=== PATIENT | female | born 1960 | race Caucasian/White ===

== ENCOUNTER 2018-04-18 14:11 | Outpatient (CLI) | payer OTHER | END 2018-04-18 14:13 | disposition home or self-care (01) | LOC: SONOGRAMA 14:11 → MAMO-SONO 14:15 | DX: M25.511 Pain in right shoulder (principal) ==

== ENCOUNTER 2018-05-09 10:46 | Outpatient (CLI) | payer OTHER | END 2018-05-09 10:48 | disposition home or self-care (01) | LOC: MAMO-SONO 10:46 | DX: N63.10 Unspecified lump in the right breast, unspecified quadrant (principal); N63.20 Unspecified lump in the left breast, unspecified quadrant; Z12.31 Encounter for screening mammogram for malignant neoplasm of breast; N62 Hypertrophy of breast ==

== ENCOUNTER 2021-07-17 09:33 | Outpatient (CLI) | payer OTHER | END 2021-07-17 09:37 | disposition home or self-care (01) | LOC: NUCLEAR 09:33 | PROVIDERS: ATTEND Obstetrics & Gynecology | DX: M81.0 Age-related osteoporosis without current pathological fracture (principal) ==

== ENCOUNTER 2021-07-17 09:34 | Outpatient (CLI) | payer OTHER | END 2021-07-17 11:06 | disposition home or self-care (01) | LOC: MAMO-SONO 09:34 | PROVIDERS: ATTEND Obstetrics & Gynecology | DX: Z12.31 Encounter for screening mammogram for malignant neoplasm of breast (principal); N64.4 Mastodynia; M81.0 Age-related osteoporosis without current pathological fracture ==

== ENCOUNTER 2024-01-19 13:04 | Outpatient (CLI) | payer OTHER | END 2024-01-19 13:07 | disposition home or self-care (01) | LOC: NUCLEAR 13:04 | PROVIDERS: ATTEND Obstetrics & Gynecology | DX: M81.0 Age-related osteoporosis without current pathological fracture (principal) ==

== ENCOUNTER 2024-11-16 11:19 | Outpatient (CLI) | payer OTHER | END 2024-11-16 11:23 | disposition home or self-care (01) | LOC: RAD 11:19 | PROVIDERS: ATTEND Physical Medicine & Rehabilitation Pain Medicine | DX: S92.356A Nondisplaced fracture of fifth metatarsal bone, unspecified foot, initial encounter for closed fracture (principal) ==